=== PATIENT | male | born 1970 | race African-American/Black ===

== ENCOUNTER 2017-01-02 10:13 | Emergency (ER) | payer OTHER ==
[~2017-01-02] VITALS: Ht 172.7 cm; Wt 97.5 kg
[~2017-01-02 10:13] MED LIST: ACETAMINOPHEN325 M1; ALEVE220 M1; AMOXICILLIN 50500 M1 PO; COMBIVENT INH; IBUPROFEN 800800 MG PO; NORCO 5-325 TA1 EACH PO; ONDANSETRON HCL4 M2 PO; PREDNISONE50 MG PO; ZPAK PO
[2017-01-02 11:28] LABS: URINE BILIRUBIN NEGATIVE (Negative); URINE BLOOD NEGATIVE (Negative); URINE COLOR YELLOW; URINE GLUCOSE-RANDOM* NEGATIVE (Negative); URINE KETONES NEGATIVE (Negative); URINE LEUKOCYTES-REFLEX NEGATIVE (Negative); URINE PROTEIN (DIPSTICK) NEGATIVE (Negative); URINE SPECIFIC GRAVITY 1.015 (1.003-1.035); URINE UROBILINOGEN 0.2 E.U./dl (0.2-1.0)
[2017-01-02 11:30] LABS: HEMATOCRIT 37.7 % (42.0-52.0); HEMOGLOBIN 12.6 gm/dL (14.0-18.0); MCH 22.6 pg (26.0-34.0); MCHC 33.5 g/dL (28.0-37.0); MCV 67.4 fL (80.0-100.0); RBC 5.59 mil/uL (4.50-6.00); RDW 15.1 % (10.5-14.5); WBC 7.9 thou/uL (4.0-11.0)
[2017-01-02 11:41] LABS: CALCIUM 8.3 mg/dL (8.5-10.1); CREATININE 0.9 mg/dL (0.7-1.3)
[2017-01-02 11:46] LABS: ALBUMIN 3.4 g/dL (3.4-5.0); TOTAL BILIRUBIN 0.2 mg/dL (<0.1-1.0)
[2017-01-02] MEDS ORDERED: SENNA S TABLET1 EACH PO (13:06)
[2017-01-02] MEDS ORDERED: MIRALAX17 GM PO (13:06)
[2017-01-02 13:29] VITALS: BP 141/97
== END 2017-01-02 13:23 | disposition home or self-care (01) ==
LOC: ER 10:13
PROVIDERS: Emergency Medicine
DX: R10.9 Unspecified abdominal pain (principal); F17.210 Nicotine dependence, cigarettes, uncomplicated; Z90.89 Acquired absence of other organs; Z88.6 Allergy status to analgesic agent